=== PATIENT | female | born 2005 | race Caucasian/White ===

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

== ENCOUNTER 2024-01-10 09:54 | Emergency (ER) | payer MEDICAID, SELFPAY ==
[2024-01-10 09:57] VITALS: BP 142/85; PULSE 102; RESP 18; TEMP 36.8; O2SAT 98
[2024-01-10 10:18] LABS: Bilirubin Negative (Negative); Blood Negative (Negative); Clarity Clear (Clear); Glucose Negative (Negative); Ketones Negative (Negative); Leukocyte Esterase Negative (Negative); Nitrite Negative (Negative); Urobilinogen 0.2 mg/dL (Up to 0.2)
--- NOTE | 2024-01-10 10:18 | W.ED.GENAD ---
Discharge Plan Disposition Patient Disposition: Home Condition: Stable Discharge Details Clinical Impression: Pelvic pain, Currently Primary Care Provider: Nafisa Johnson ED Provider: Jaun Fajardo Home Meds and New Rx's Prescriptions: Continued albuterol sulfate [ProAir HFA] 90 mcg/actuation HFA aerosol inhaler 1 inh inhalation Q4H PRN famotidine 20 mg tablet 20 mg PO QHS omeprazole 20 mg capsule,delayed release(DR/EC) 20 mg PO DAILY cetirizine 10 mg tablet 10 mg PO DAILY PRN lamotrigine 25 mg tablet 50 mg PO BID Discharge Instructions Additional Instructions: Your ultrasound showed that you have a intrauterine that is approximately 10 weeks and 6 days a long Follow-up with [facility] if you determined that you do not want to proceed with the If you feel more ill or have severe worsening pain return to the emergency department for reevaluation HPI General Mode of arrival: ambulatory. Date/Time Provider Initiated Documentation: 01/10/24 09:54. Limitations to Documentation: no limitations. Information obtained by: patient. History of Present Illness 18 year old F presents to the emergency department with the chief complaint of left lower pelvic pain, described as moderate, Quality is described as sharp, and is localized to the pelvis. Patient reports no radiation. Patient started experiencing this month(s) (1) and it has been intermittent. No relieving factors improve symptom(s), No exacerbating factors reported . Patient notes no other symptoms.. Related Data Home Medications ?Medication ?Instructions ?Recorded ?Confirmed albuterol sulfate 90 mcg/actuation 1 inh inhalation Q4H PRN 11/24/21 01/10/24 aerosol inhaler (ProAir HFA) cetirizine 10 mg tablet 10 mg PO DAILY PRN 11/24/21 01/10/24 famotidine 20 mg tablet 20 mg PO QHS 11/24/21 01/10/24 lamotrigine 25 mg tablet 50 mg PO BID 11/24/21 01/10/24 omeprazole 20 mg capsule,delayed 20 mg PO DAILY 11/24/21 01/10/24 release Allergies Allergy/AdvReac Type Severity Reaction Status Date / Time amoxicillin Allergy Severe Anaphylaxis Verified 01/10/24 10:13 penicillin V Allergy Severe Anaphylaxis Verified 01/10/24 10:13 lubiprostone Allergy Wheezing Verified 10/22/24 10:13 General Stated Complaint: Abd Prob YOLANDE: 3 Review of Systems All systems reviewed & are unremarkable except as noted in HPI and below Constitutional Constitutional: Denies chills, Denies fever(s) and Denies weakness Cardiovascular Cardiovascular: Denies chest pain and Denies dyspnea Respiratory Respiratory: Denies cough and Denies dyspnea Gastrointestinal Gastrointestinal: Denies nausea and Denies vomiting Genitourinary Genitourinary: Reports pelvic pain Integumentary/Breasts Skin/Breast: Denies rash Neurologic Neurologic: Denies weakness Psychiatric Psychiatric: Denies depression Endocrine Endocrine: Denies cold intolerance and Denies heat intolerance Allergic/Immunologic Allergic/Immunologic: Denies urticaria Exam Const General: no acute distress Orientation: alert HENMT Head: normal to inspection Ears: external ears normal General nose exam: external nose normal Mouth: moist mucous membranes Eyes General: appearance normal, both eyes and all related structures Neck Neck: normal visual inspection Resp Effort & Inspection: normal respiratory effort and able to speak in complete sentences Cardio Rate: regular rate GI Palpation: soft, not firm and no guarding Skin General skin exam: no rashes or lesions noted Neuro General: patient alert and patient oriented x3 Extrem General: normal to inspection Psych Mental Status: mental status grossly normal Course Vital Signs Vital signs: Vital Signs Temperature 36.8 C 01/10/24 09:57 Pulse 102 H 01/10/24 09:57 Respiratory Rate 18 01/10/24 09:57 Blood Pressure 142/85 H 01/10/24 09:57 Pulse Oximetry 98 01/10/24 09:57 Temperature 36.8 C 01/10/24 09:57 Temperature Source Oral 01/10/24 09:57 Pulse 102 H 01/10/24 09:57 Respiratory Rate 18 01/10/24 09:57 Blood Pressure 142/85 H 01/10/24 09:57 Blood Pressure Position Sitting 01/10/24 09:57 Pulse Oximetry 98 01/10/24 09:57 Oxygen Delivery Method Room Air 01/10/24 09:57 Oxygen Flow Rate 0 01/10/24 09:57 Pain Level 6 01/10/24 09:57 Lab/Test Results Lab/Test Results: POC- Test(urine) Positive Medical Decision Making 18-year-old female who denies any significant past medical history comes in with 1 month of intermittent left lower pelvic pain but has been more persistent the last few days. She denies any vomiting, fevers, chills, vaginal bleeding or discharge. She has a soft nondistended abdomen. No tenderness in the abdomen in the left lower pelvis she does have some tenderness. Her [id number] test today is positive, she says her last menstrual period was early October. Given she has no vaginal bleeding I doubt ectopic, will check CBC CMP and hCG quant and also obtain pelvic ultrasound to evaluate for pathology such as ovarian torsion and cyst. Patient has a live intrauterine at approximately 10 weeks 6 days, small left corpus luteum cyst otherwise no acute findings. She is stable, she does not want to keep the , she is planning on calling [facility] now that she knows of how far along she is. She is stable for discharge, return precautions given Differential Diagnosis Differential Diagnosis: , ovarian cyst Imaging Data Radiologic Study: Attestation: I personally reviewed and interpreted this imaging study as follows: Imaging: Ultrasound Radiologist's impression: Patient Name: Shelby Brennan Unit #: [id number] Loc: ER Ordering Provider: Jaun Fajardo M.D. Status: [facility] Primary Care Provider: Nafisa Johnson Date of Exam: 01/10/24 Sex: F Admission Date: 01/10/24 : 2005 Age: 18 Exam(s) US OB 1ST TRIMESTER EXAM: US OB 1ST TRIMESTER CLINICAL HISTORY: left lower pelvic pain. TECHNIQUE: First trimester obstetrical ultrasound was performed. COMPARISON: No exams were available for comparison FINDINGS: There is an intrauterine gestational sac which contains a viable pole which exhibits heart rate of 157 bpm. [place]-rump length measurement is 40 mm, corresponding to 10 weeks and 6 days gestational age. There is no evidence of subchorionic hemorrhage. Maternal ovaries: Left ovary measures 3.2 x 2.4 x 2.2 cm and contains a corpus luteal cyst measuring 2 x 1.8 cm. Right ovary measures 3.4 x 1.6 x 2.6 cm. There is no fluid in the cul-de-sac and adnexal regions. IMPRESSION:: Single viable intrauterine gestation which is approximately 10 weeks and 6 days gestational age by crown rump length measurement, implying REBECCA of 08/01/2024 There is no evidence of subchorionic hemorrhage. Quality:SDOH Health Related Social Needs: No Data to Display PFSH All Active Problems (Updated 01/10/24 @ 12:18 by Jaun Fajardo MD) Currently (Acute) Pelvic pain (Acute) Medical History (Updated 01/10/24 @ 12:18 by Jaun Fajardo MD) GERD (gastroesophageal reflux disease) Seasonal allergic rhinitis Functional constipation Dysthymia Acne Social History Smoking/Tobacco Use Status: Never Smoking risk assessment performed?: Yes Alcohol Intake: never Drug use: Never Substance use type: does not use Do you feel safe at home: Yes Do you feel safe in your relationship?: Yes
[2024-01-10 10:27] LABS: Abs Immature Grans 0.08 10^3/uL (0.0-0.06); Absolute Basophil Count 0.05 10^3/uL (0.0-0.2); Absolute Eosinophil Count 0.11 10^3/uL (0.0-0.7); Absolute Lymphocyte Count 2.78 10^3/uL (1.2-3.4); Absolute Monocyte Count 0.82 10^3/uL (0.1-0.8); Basophils % 0.5 %; HCT 41.4 % (36.0-46.0); HGB 14.1 g/dL (11.2-15.7); Immature Grans % 0.7 %; Lymphocytes % 25.4 %; MCH 30.7 pg (27.0-33.0); MCHC 34.1 % (32.0-36.0); MCV 90 fL (80-95); MPV 9.1 fL (8.0-11.0); Monocytes % 7.5 %; Neutrophils % 64.9 %; Platelet Count 410 10^3/uL (130-400); RBC 4.59 10^6/uL (3.93-5.22); RDW 12.4 % (11.7-14.6); RDW-SD 41.4 fL; WBC 10.96 10^3/uL (4.4-10.8)
[2024-01-10 10:30] LABS: Absolute Neutrophil Count 7.11 10^3/uL (1.2-6.7)
--- NOTE | 2024-01-10 10:30 | DI.US_ITS ---
Exam(s) US OB 1ST TRIMESTER EXAM: US OB 1ST TRIMESTER CLINICAL HISTORY: left lower pelvic pain. TECHNIQUE: First trimester obstetrical ultrasound was performed. COMPARISON: No exams were available for comparison FINDINGS: There is an intrauterine gestational sac which contains a viable pole which exhibits hear t rate of 157 bpm. [place]-rump length measurement is 40 mm, corresponding to 10 weeks and 6 days gestational age. There is no evidence of subchorionic hemorrhage. Maternal ovaries: Left ovary measures 3.2 x 2.4 x 2.2 cm and contains a corpus luteal cyst measuring 2 x 1.8 cm. Right ovary measures 3.4 x 1.6 x 2.6 cm. There is no fluid in the cul-de-sac and adnexal regions. IMPRESSION:: Single viable intrauterine gestation which is approximately 10 weeks and 6 days gestati onal age by crown rump length measurement, implying REBECCA of 08/01/2024 There is no evidence of subchorionic hemorrhage. No abnormal adnexal findings. Corpus luteal cyst noted in the left ovary. DATA REPOSITORY:
[2024-01-10] MEDS: Acetaminophen 500 MG TAB 1000 MG PO (11:04)
[2024-01-10 11:28] LABS: ALT 19 U/L (14-59); AST 13 U/L (15-37); Albumin 3.8 g/dL (3.4-5.0); Alkaline Phosphatase 63 U/L (46-116); Anion Gap 12.6 mmol/L (3-11); BUN 5 mg/dL (7-18); Bilirubin, Total 0.32 mg/dL (0.2-1.0); CO2 24.4 mmol/L (21.0-32.0); CREATININE 0.6 mg/dL (0.55-1.02); Calcium 9.5 mg/dL (8.5-10.1); Chloride 105 mmol/L (98-107); Estimated GFR 132.52 (mL/min/1.73m2); Glucose 80 mg/dL (74-106); Magnesium 1.8 mg/dL (1.8-2.4); Potassium 3.2 mmol/L (3.5-5.1); Sodium 142 mmol/L (136-145); Total Protein 7.9 g/dL (6.4-8.2)
[2024-01-10 11:33] LABS: Lipase 44 U/L (16-77)
[2024-01-10 12:24] VITALS: BP 136/77; PULSE 83; RESP 16; O2SAT 97
== END 2024-01-10 12:25 | disposition home or self-care (01) ==
PROVIDERS: Emergency Provider Emergency Medicine; PCP Registered Nurse Infection Control
DX: R10.2 Pelvic and perineal pain (principal); R11.2 Nausea with vomiting, unspecified; Z34.90 Encounter for supervision of normal pregnancy, unspecified, unspecified trimester
CPT/HCPCS: 80053; 81025; 83690; 99284; 76801; 81003; 83735; 84702; 85025; 99283

== ENCOUNTER 2024-12-31 18:34 | Emergency (ER) | payer MEDICAID, SELFPAY ==
[2024-12-31] VITALS (30 sets, daily range): BP systolic 94–140; BP diastolic 35–79; PULSE 63–131; RESP 10–24; TEMP 37–37.2; O2SAT 98–100
--- NOTE | 2024-12-31 18:30 | RT.EKG_ITS ---
APPROVED REPORT Exam: Resting ECG Reason for Exam: syncope Patient Location: E HR:102 bpm ECG Measurements Heart Rate [address] 129 P 44 QRSd 82 QRS 22 QT 314 T 3 QTc 409 Conclusion Sinus tachycardia...rate> [address] segment or T wave abnormalities to suggest occlusive NM
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
[2024-12-31 19:08] LABS: Abs Immature Grans 0.07 10^3/uL (0.0-0.06); HCT 41.2 % (36.0-46.0); HGB 13.7 g/dL (11.2-15.7); Immature Grans % 0.5 %; MCH 30.0 pg (27.0-33.0); MCHC 33.3 % (32.0-36.0); MCV 90 fL (80-95); MPV 9.4 fL (8.0-11.0); Platelet Count 413 10^3/uL (130-400); RBC 4.56 10^6/uL (3.93-5.22); RDW 13.0 % (11.7-14.6); RDW-SD 43.0 fL; WBC 14.13 10^3/uL (4.4-10.8)
[2024-12-31 19:22] LABS: ALT 19 U/L (14-59); AST 13 U/L (15-37); Albumin 4.2 g/dL (3.4-5.0); Alkaline Phosphatase 70 U/L (46-116); Anion Gap 12.6 mmol/L (3-11); BUN 8 mg/dL (7-18); Bilirubin, Total 0.5 mg/dL (0.2-1.0); CO2 23.4 mmol/L (21.0-32.0); Calcium 9.2 mg/dL (8.5-10.1); Chloride 107 mmol/L (98-107); Estimated GFR 126.90 (mL/min/1.73m2); Glucose 91 mg/dL (74-106); Magnesium 1.8 mg/dL (1.8-2.4); Potassium 3.7 mmol/L (3.5-5.1); Sodium 143 mmol/L (136-145); Total Protein 7.3 g/dL (6.4-8.2)
--- NOTE | 2024-12-31 19:27 | ED.GENADUL_ITS ---
Discharge Plan Disposition Patient Disposition: Home Condition: Good Discharge Details Clinical Impression: Concussion, Syncope, vasovagal Primary Care Provider: Nafisa Johnson ED Provider: Alicia Anaya Home Meds and New Rx's Prescriptions: Continued albuterol sulfate [ProAir HFA] 90 mcg/actuation HFA aerosol inhaler 1 inh inhalation Q4H PRN cetirizine 10 mg tablet 10 mg PO DAILY PRN Discharge Instructions Instructions: Concussion, Adult ED, Fainting, Adult ED Additional Instructions: Tylenol and ibuprofen over the counter for headache; follow the directions on the bottle. Call your primary care doctor in the morning to schedule an appointment for within the next 72 hours to followup on your visit here. At that visit discuss your fainting and your head injury. Return to the emergency department for new or worsening symptoms including severe headache, if you begin vomiting again, numbness, weakness, vertigo, vision changes, chest pain, shortness of breath, or if you have any other concerns. Stand Alone Forms: Work Release HPI General Mode of arrival: ambulatory . Date/Time Provider Initiated Documentation: 12/31/24 18:44 . Limitations to Documentation: no limitations . Information obtained by: patient and family . HPI Narrative: 19yo previously healthy female presenting for syncope. Has a history of fainting in middle school, typically in stressful situations, but has not happened in many years. This evening was in an argument with her significant other when she began to feel lightheaded, the room went bright, and she lost consciousness. She woke up on the ground with a headache. SO reported to her that she was out for only a few seconds, he did not mention any abnormal m ovements. Since this occured she has had a headache and been vomiting. No neck pain. No numbness, tingling, weakness, vertigo, or double vision. No pain elsewhere. No family history of congenital cardiac disease, congential arythmia, or sudden unexpected a young age. No history of recent bleeding. She is otherwise in her usual state of health with no fevers, chills, rash, abdominal pain, chest pain, difficulty breathing, or other concerns. Related Data Home Medications ?Medication ?Instructions ?Recorded ?Confirmed albuterol sulfate 90 mcg/actuation 1 inh inhalation Q4 H PRN 11/24/21 12/31/24 aerosol inhaler (ProAir HFA) cetirizine 10 mg tablet 10 mg PO DAILY PRN 11/24/21 12/31/24 Allergies Allergy/AdvReac Type Severity Reaction Status Date / Time amoxicillin Allergy Severe Anaphylaxis Verified 12/31/24 18:39 penicillin V Allergy Severe Anaphylaxis Verified 12/31/24 18:39 lubiprostone Allergy Wheezing Verified 12/31/24 18:39 General Stated Complaint: Dizzy/Sync YOLANDE: 3 Review of Systems Narrative: see HPI Exam Narrative Exam Narrative: General: Alert, well appearing, well nourished, in no acute distress. Head: Normocephalic, atraumatic Neck: Trachea midline, ?Neck supple. No midline cervical spinal tenderness. Full pain free ROM at c-spine. ENT: ?MMM.? No oropharygeal lesions or exudate. Cardiac: ?RRR, no murmurs appreciated Resp: No respiratory distress. Speaking in full sentences. Abd: ?Soft, non-distended, nontender Extremities: ?No deformities.? No peripheral edema. Neuro: ? GCS 15.? PERRL.? EOMI.? Fluent speech, no dysarthria. Motor- 5/5 strength symmetric bilateral upper and lower extremities including shoulder abductors/adductors, elbow flexors/extensors, wrist flexors/extensors, finger abductors/adductors, hipflexors/extensors, knee flexors/extensors, ankle dorsiflexors and planter flexors. Sensation- ?Intact to light touch and symmetric multiple dermatomes including upper and lower extremities Coordination- No dysmetria on finger to nose Reflexes- 2/4 achilles & patellar, no clonus Gait/station: ?Normal stance.? No truncal ataxia. Steady gait with equal normal steps CRANIAL NERVES: II: Pupils equal and reactive, III, IV, : EOM intact, no gaze preference or deviation, no nystagmus. V: normal sensation in V1, V2, and V3 segments bilaterally VII: no asymmetry, no nasolabial fold flattening VIII: normal hearing to speech IX, X: normal palatal elevation, no uvular deviation XI: 5/5 head turn and 5/5 shoulder shrug bilaterally XII: midline tongue protrusion Course Vital Signs Vital signs: Vital Signs Temperature 37.0 C 12/31/24 18:37 Pulse 112 H 12/31/24 18:37 Respiratory Rate 16 12/31/24 18:37 Blood Pressure 140/79 12/31/24 18:37 Pulse Oximetry 98 12/31/24 18:37 Temperature 37.0 C 12/31/24 18:37 Pulse 112 H 12/31/24 18:37 Respiratory Rate 16 12/31/24 18:49 Respiratory Effort Normal, Non-Labored 12/31/24 18:49 Respiratory Depth Normal 12/31/24 18:49 Respiratory Pattern Normal 12/31/24 18:49 Blood Pressure 140/79 12/31/24 18:37 Pulse Oximetry 98 12/31/24 18:37 Pain Level 8 12/31/24 18:37 Lab/Test Results Lab/Test Results: Laboratory Tests Range/Units 12/31/24 19:00 WBC (4.4-10.8) 10^3/uL 14.13 H RBC (3.93-5.22) 10^6/uL 4.56 Hgb (11.2-15.7) g/dL 13.7 Hct (36.0-46.0) % 41.2 MCV (80-95) fL 90 MCH (27.0-33.0) pg 30.0 MCHC (32.0-36.0) % 33.3 RDW (11.7-14.6) % 13.0 Plt Count (130-400) 10^3/uL 413 H MPV (8.0-11.0) fL 9.4 Immature Gran % % 0.5 Neutrophils % % 70.5 Lymphocytes % % 20.7 Monocytes % % 7.6 Eosinophils % % 0.3 Basophils % % 0.4 Nucleated RBC % (0.0-0.3) % 0.0 Absolute Neutrophils (1.2-6.7) 10^3/uL 9.96 H Absolute Lymphocytes (1.2-3.4) 10^3/uL 2.92 Absolute Monocytes (0.1-0.8) 10^3/uL 1.07 H Absolute Eosinophils (0.0-0.7) 10^3/uL 0.04 Absolute Basophils (0.0-0.2) 10^3/uL 0.06 Sodium (136-145) mmol/L 143 Potassium (3.5-5.1) mmol/L 3.7 Chloride (98-107) mmol/L 107 Carbon Dioxide (21.0-32.0) mmol/L 23.4 Anion Gap (3-11) mmol/L 12.6 H BUN (7-18) mg/dL 8 Creatinine (0.55-1.02) mg/dL 0.7 Est GFR (CKD-EPI 2020) (mL/min/1.73m2) 126.90 Glucose (74-106) mg/dL 91 Calcium (8.5-10.1) mg/dL 9.2 Magnesium (1.8-2.4) mg/dL 1.8 Total Bilirubin (0.2-1.0) mg/dL 0.5 AST (15-37) U/L 13 L ALT (14-59) U/L 19 Alkaline Phosphatase (46-116) U/L 70 Total Protein (6.4-8.2) g/dL 7.3 Albumin (3.4-5.0) g/dL 4.2 POC- Test(urine) Negative Medical Decision Making 19yo previously healthy female presenting for syncope; this evening was in an argument with her significant other when she began to feel lightheaded, the room went bright, and she lost consciousness. Similar episodes in middle school but not recently. No seizure like activity noted. Since the event has had headache and N/V. Tachycardiac to 110's on arrival, vital signs otherwise reassuring. Well appearing on exam with a normal neurologic exam. No family history of congential arrhythmia or sudden unexpected at a young age. EKG on arrival sinus tachycardia, appropriate intervals, not suggestive of Brugada, long QT, WpW, HOCM, or ARVD. History and syncopal event most suggestive of vasovagal syncope. Will evaluate further with orthostatic vital signs and labs; given recurrent vomiting (4-5 times since event) will also get head CT. C spine clinically clear. Will treat with tylenol and zofran as well as IVFB while awaiting results of workup. -Labs reviewed as below, CBC with mild leukocytosis at 14 (nonspecific) and no anemia, CMP with normal electrolytes and no actionable abnormalities, Mg normal, dimer negative (would not further pursue PE with CT imaging). -Head CT independently reviewed; no large ICH or mass on my view; radiology read with no acute findings. -Orthostatic vital signs with borderline hypotension, no orthostasis. With reassuring head CT, will add toradol for headache. PO challenged and tolerated well. Ambulated in the department steadily without lightheadedness. History/exam/workup not consistent with neurogenic or cardiogenic syncope; suspect vasovagal syncope and subsequent concussion. Repeat vital signs normal. Will discharge home to followup with PCP. Discharge instructions and return precautions were reviewed with patient who verbalized understanding. All questions were answered and she is in full agreement with the plan. Lab Data Lab results reviewed: Yes I reviewed the patient's lab results. Labs: Laboratory Tests Range/Units 12/31/24 19:00 WBC (4.4-10.8) 10^3/uL 14.13 H RBC (3.93-5.22) 10^6/uL 4.56 Hgb (11.2-15.7) g/dL 13.7 Hct (36.0-46.0) % 41.2 MCV (80-95) fL 90 MCH (27.0-33.0) pg 30.0 MCHC (32.0-36.0) % 33.3 RDW (11.7-14.6) % 13.0 Plt Count (130-400) 10^3/uL 413 H MPV (8.0-11.0) fL 9.4 Immature Gran % % 0.5 Neutrophils % % 70.5 Lymphocytes % % 20.7 Monocytes % % 7.6 Eosinophils % % 0.3 Basophils % % 0.4 Nucleated RBC % (0.0-0.3) % 0.0 Absolute Neutrophils (1.2-6.7) 10^3/uL 9.96 H Absolute Lymphocytes (1.2-3.4) 10^3/uL 2.92 Absolute Monocytes (0.1-0.8) 10^3/uL 1.07 H Absolute Eosinophils (0.0-0.7) 10^3/uL 0.04 Absolute Basophils (0.0-0.2) 10^3/uL 0.06 D-Dimer (<500) ng/mlFEU 100 Sodium (136-145) mmol/L 143 Potassium (3.5-5.1) mmol/L 3.7 Chloride (98-107) mmol/L 107 Carbon Dioxide (21.0-32.0) mmol/L 23.4 Anion Gap (3-11) mmol/L 12.6 H BUN (7-18) mg/dL 8 Creatinine (0.55-1.02) mg/dL 0.7 Est GFR (CKD-EPI 2020) (mL/min/1.73m2) 126.90 Glucose (74-106) mg/dL 91 Calcium (8.5-10.1) mg/dL 9.2 Magnesium (1.8-2.4) mg/dL 1.8 Total Bilirubin (0.2-1.0) mg/dL 0.5 AST (15-37) U/L 13 L ALT (14-59) U/L 19 Alkaline Phosphatase (46-116) U/L 70 Total Protein (6.4-8.2) g/dL 7.3 Albumin (3.4-5.0) g/dL 4.2 PFSH All Active Problems (Updated 12/31/24 @ 21:31 by Alicia Anaya MD) Syncope, vasovagal (Acute) Concussion (Acute) Medical History (Updated 12/31/24 @ 21:31 by Alicia Anaya MD) GERD (gastroesophageal reflux disease) Seasonal allergic rhinitis Functional constipation Dysthymia Acne Social History Smoking/Tobacco Use Status: Current every day Tobacco Type: e-cigarettes Smoking risk assessment performed?: Yes Alcohol Intake: current Alcohol Intake frequency: a few times a month Alcohol type: hard liquor Drug use: Daily Substance use type: marijuana Housing: apartment Do you feel safe at home: Yes Do you feel safe in your relationship?: Yes
[2024-12-31 19:32] LABS: D-Dimer 100 ng/mlFEU (<500)
[2024-12-31] MEDS: Ondansetron 4 MG/2 ML VIAL IVP (19:51)
[2024-12-31] MEDS: Acetaminophen 500 MG TAB 1000 MG PO (19:51)
[2024-12-31] MEDS: Normal Saline 1,000 ML 1000 ML IV (19:52)
--- NOTE | 2024-12-31 20:17 | DI.VRAD_ITS ---
PROCEDURE INFORMATION: Exam: CT Head Without Contrast Exam date and time: 12/31/2024 7:04 PM Age: 19 years old Clinical indication: Syncope and collapse; Syncope with head strike, pain on R side forehead to ear TECHNIQUE: Imaging protocol: Computed tomography of the head without contrast. Radiation optimization: All CT scans at this facility use at least one of these dose optimization techniques: automated exposure control; mA and/or kV adjustment per patient size (includes targeted exams where dose is matched to clinical indication); or iterative reconstruction. COMPARISON: No relevant prior studies available. FINDINGS: Brain: Normal. Cerebral ventricles: No ventriculomegaly. Paranasal sinuses: Visualized sinuses are unremarkable. No fluid levels. Mastoid air cells: Normal as visualized. Bones: Unremarkable. No acute fracture. Soft tissues: Unremarkable. IMPRESSION: No acute intracranial abnormality. Dictated and Authenticated by: Abelardo Brown MD. Orderin Héctor Vargas MD
[2024-12-31] MEDS: Ketorolac 15 MG/ML VIAL IM (20:43)
== END 2024-12-31 22:10 | disposition home or self-care (01) ==
PROVIDERS: Emergency Provider Student in an Organized Health Care Education/Training Program; PCP Registered Nurse Infection Control
DX: S06.0XAA Concussion with loss of consciousness status unknown, initial encounter (principal); R55 Syncope and collapse; R51.9 Headache, unspecified; R11.2 Nausea with vomiting, unspecified; W19.XXXA Unspecified fall, initial encounter
CPT/HCPCS: 36415; 80053; 81025; 93005; 96361; 96374; 96375; 99284; 70450; 83735; 85025; 85379; 93010; J1885; J2405